=== PATIENT | female | born 1940 | race Caucasian/White ===

== ENCOUNTER 2016-05-27 12:47 | Emergency (ER) | payer OTHER ==
[~2016-05-27 12:47] MED LIST: ALBU1AER INH; ATEN1TAB74 PO; COQ-100C5 OR; FURO1TAB93 PO; GLUCTAB PO; KLOR20TA6 PO; OS-CTAB3 PO; SYMB80AE INH; VITA400C70 PO; ZOCO40TA PO
[2016-05-27 12:53] VITALS: BP 195/98; PULSE 93; RESP 16; TEMP 98.8; O2SAT 95
[2016-05-27] MEDS ORDERED: CYAN1TAB24 (13:26)
[2016-05-27] MEDS ORDERED: ENAL2.5T PO (13:26)
[2016-05-27] MEDS ORDERED: POTA-163 PO (13:26)
[2016-05-27] MEDS ORDERED: MAGN200T PO (13:26)
[2016-05-27] MEDS ORDERED: D3400CAP (13:26)
[2016-05-27] MEDS ORDERED: VENTAER INH (13:26)
[2016-05-27] MEDS ORDERED: XARE10TA PO (13:26)
[2016-05-27] MEDS ORDERED: SYMB80AE INH (13:26)
[2016-05-27] MEDS ORDERED: MECL25CH CHEW (13:26)
[2016-05-27] MEDS ORDERED: ATEN50TA PO (13:26)
[2016-05-27] MEDS ORDERED: ZOCO40TA PO (13:26)
[2016-05-27] MEDS ORDERED: GLUCTAB PO (13:26)
[2016-05-27] MEDS ORDERED: LIDOCAINE HCL 2% 20 ML VIAL INFIL ONE (13:45)
[2016-05-27] MEDS ORDERED: LIDOCAINE HCL 1% 20 ML VIAL INFIL ONE (14:00)
[2016-05-27] MEDS ORDERED: LIDOCAINE HCL 2% 50 ML VIAL NERV BLOCK ONE (14:00)
--- NOTE | 2016-05-27 14:26 | RADHPO ---
EXAM DATE/TIME: 05/27/2016 13:21 [place] COMPARISON: No previous studies available for comparison. INDICATIONS : Right shoulder pain after fall. MEDICAL HISTORY : None. SURGICAL HISTORY : None. ENCOUNTER: Initial ACUITY: 2 days PAIN SCORE: 6/10 LOCATION: Right chest FINDINGS: Degenerative changes are seen at the AC joint. Alignment is anatomic. A fracture is not appreciated . CONCLUSION: Degenerative changes without fracture. Yo Land MD FACR on May 27, 2016 at 14:03 Board Certified Radiologist. This report was verified electronically.
--- NOTE | 2016-05-27 14:43 | PD ---
HPI Chief Complaint: Fall Time Seen by Provider: 13:18 Travel History International Travel<30 days: No Contact w/Intl Traveler<30days: No Traveled to known affect area: No History of Present Illness HPI This 76-year-old female had a fall. She fell on her right side and hit her right shoulder and her right ear. She sustained a laceration to the right ear she did not have loss of consciousness she is not having headache now. She is having some pain in the right shoulder. PFSH Past Medical History Hx Anticoagulant Therapy: Yes (XERALTA) Asthma: Yes Atrial Fibrillation: Yes High Cholesterol: Yes Diabetes: Yes Patient Takes Glucophage: Yes Diminished Hearing: No Hypertension: Yes Influenza Vaccination: No Menopausal: Yes Tubal Ligation: Yes Past Surgical History Appendectomy: Yes Cholecystectomy: Yes Hysterectomy: Yes Tonsillectomy: Yes Other Surgery: Yes (thyroid nodules removed) Social History Alcohol Use: No Tobacco Use: No Substance Use: No Allergies-Medications (Allergen,Severity, Reaction): Coded Allergies: [place] Nut (Verified Allergy, Severe, Anaphylaxis, 05/27/16) Egg Allergy (Verified Allergy, Mild, 05/27/16) Uncoded Allergies: NUTS (Allergy, Mild, 07/18/09) Reported Meds & Prescriptions Reported Meds & Active Scripts Active Reported Zocor (Simvastatin) 40 Mg Tab 40 Mg PO DAILY Xarelto (Rivaroxaban) 10 Mg Tab 10 Mg PO DAILY Meclizine (Meclizine HCl) 25 Mg Chew 25 Mg CHEW TID Enalapril (Enalapril Maleate) 2.5 Mg Tab 2.5 Mg PO DAILY Magnesium 200 Mg Tab 200 Mg PO DAILY B12 (Cyanocobalamin) 1,000 Mcg Tab D3 (Cholecalciferol) 400 Unit Cap Potassium Chloride ER (Potassium Chloride) 20 Meq Tab 20 Meq PO DAILY Glucophage XR (Metformin HCl) 500 Mg Carl 500 Mg PO DAILY With evening meal Symbicort Inh (Budesonide/Formoterol Fumarate) 80-4.5 Mcg/Act Aero 2 Puff INH Q12HR Atenolol 50 Mg Tab 50 Mg PO DAILY Ventolin Hfa 18 GM Inh (Albuterol Sulfate) 90 Mcg/Act Aer 2 Puff INH Q4-6H PRN Review of Systems General / Constitutional: No: Fever, Chills Eyes: No: Diploplia HENT: Positive: Earache, No: Headaches Cardiovascular: No: Chest Pain or Discomfort Respiratory: No: Cough, Shortness of Breath Gastrointestinal: No: Nausea Genitourinary: No: Urgency, Frequency Musculoskeletal: Positive: Myalgias Skin: No Rash, No Itching Physical Exam Narrative GENERAL: Well-developed female SKIN: Warm and dry. HEAD: Atraumatic. Normocephalic. EYES: Pupils equal and round. No scleral icterus. No injection or drainage. ENT: No nasal bleeding or discharge. Mucous membranes pink and moist. There is a laceration of the lower part of the auricle just above the earlobe, 1 cm in length NECK: Trachea midline. No JVD. CARDIOVASCULAR: Regular rate and rhythm. No murmur appreciated. RESPIRATORY: No accessory muscle use. Clear to auscultation. Breath sounds equal bilaterally. GASTROINTESTINAL: Abdomen soft, non-tender, nondistended. Hepatic and splenic margins not palpable. MUSCULOSKELETAL: No obvious deformities. No clubbing. No cyanosis. No edema. He is ecchymosis and a very superficial abrasion of the right shoulder. There is some pain with movement. There is no deformity NEUROLOGICAL: Awake and alert. No obvious cranial nerve deficits. Motor grossly within normal limits. Normal speech. PSYCHIATRIC: Appropriate mood and affect; insight and judgment normal. Data Data Last Documented VS Vital Signs Date Time Temp Pulse Resp B/P Pulse Ox O2 Delivery O2 Flow Rate FiO2 05/27/16 12:53 98.8 93 16 195/98 95 Orders Shoulder, Complete (>2vws) (05/27/16 13:18) Lidocaine 2% Inj (Xylocaine 2% Inj) (05/27/16 13:45) Lidocaine 1% Inj (Xylocaine 1% Inj) (05/27/16 14:00) Lidocaine 2% Inj (Xylocaine 2% Inj) (05/27/16 14:00) [facility] Medical Decision Making Medical Screen Exam Complete: Yes Emergency Medical Condition: Yes Medical Record Reviewed: Yes Differential Diagnosis Differential includes laceration auricle, contusion shoulder, fracture shoulder Narrative Course This patient has been sutured by the physician's marketing administrative assistant. X-ray of the shoulder shows degenerative changes but no fracture. Diagnosis Primary Impression: Laceration of auricle Qualified Code: S01.311A - Laceration of auricle, right, initial encounter Additional Impression: Contusion of right shoulder Qualified Code: S40.011A - Contusion of right shoulder, initial encounter Disposition: 01 DISCHARGE HOME Condition: Stable Reymundo Nobles MD May 27, 2016 14:43
[2016-05-27 15:02] VITALS: BP 228/94
--- NOTE | 2016-06-01 11:18 | PD ---
Physical Exam Date Seen by Provider: May 27, 2016 Narrative For full history and physical examination please see previous provider's note. I was asked to repair laceration to patient's right ear. Data Data Orders Shoulder, Complete (>2vws) (05/27/16 13:18) Lidocaine 2% Inj (Xylocaine 2% Inj) (05/27/16 13:45) Lidocaine 1% Inj (Xylocaine 1% Inj) (05/27/16 14:00) Lidocaine 2% Inj (Xylocaine 2% Inj) (05/27/16 14:00) [facility] Medical Record Reviewed: Yes Supervised Visit with MARIUSZ: Yes Procedures Procedure Narrative LACERATION LOCATION: Right ear LENGTH: 1.5 cm NUMBER OF STITCHES/ALEXA: 8 stitches REPAIR: The area of the laceration was prepped with Betadine and sterilely draped. The laceration was infiltrated with 1% lidocaine. The wound was copiously irrigated and explored without evidence of foreign body, tendon injury or neurovascular injury. The wound was closed using 4-0 Prolene. This was a 1 layer repair. A sterile dressing was applied. The patient was advised to keep the dressing clean and dry. Patient tolerated the procedure well. Diagnosis Primary Impression: Laceration of auricle Qualified Code: S01.311A - Laceration of auricle, right, initial encounter Additional Impression: Contusion of right shoulder Qualified Code: S40.011A - Contusion of right shoulder, initial encounter Referrals: William Saucedo MD (PCP) Patient Instructions: General Instructions, Laceration (ED), Contusion in Adults (ED) Departure Forms: Tests/Procedures Disposition: 01 DISCHARGE HOME Condition: Stable Astrid Joseph Jun 01, 2016 11:18
== END 2016-05-27 15:04 | disposition home or self-care (01) ==
LOC: PHED 12:47
DX: S01.311A Laceration without foreign body of right ear, initial encounter (principal); S40.011A Contusion of right shoulder, initial encounter; J45.909 Unspecified asthma, uncomplicated; I48.91 Unspecified atrial fibrillation; E78.00 Pure hypercholesterolemia, unspecified; E11.9 Type 2 diabetes mellitus without complications; I10 Essential (primary) hypertension; Z79.01 Long term (current) use of anticoagulants; W19.XXXA Unspecified fall, initial encounter
CPT/HCPCS: 12011; 73030